=== PATIENT | female | born 1980 | race Caucasian/White ===

== ENCOUNTER 2022-08-14 19:24 | Emergency (ER) | payer OTHER ==
[2022-08-14 21:21] VITALS: BP 114/65
--- NOTE | 2022-08-14 21:54 | ERPHSYRPT ---
- History of Present Illness Time Seen by Provider: 08/14/22 19:50 Source: patient Exam Limitations: no limitations Patient Subjective Stated Complaint: Pt states "On sunday I had a headache behind my eyes which is gone now but my neck and back was also hurting and my ne ck/back continues to hurt." Triage Nursing Assessment: Pt alert and oriented x3, very talkative. Ambulated to ED cot without difficulty, able to get into bed without difficulty. Skin w/p/d. No apparent respiratory distress. No bruising/erythema/deformities/tenderness along neck or back. Physician History: Patient is a 41-year-old white female presents with back pain since Sunday morning or 2 and half days ago she had some retro-orbital pain she is also had some pain into the shoulders and upper back. She has had whiplash on 2 occasions she denies any fever chills sweats she also has had muscle spasms in the past. Timing/Duration: day(s) (2) Severity: moderate Modifying Factors: Improves With: movement Allergies/Adverse Reactions: No Known Drug Allergies Allergy (Unverified 08/14/22 19:43) Home Medications: Furosemide [Lasix] See Rx Instructions .ROUTE .COMPLEX 08/14/22 [History] Lisinopril/Hydrochlorothiazide [Lisinopril-Hctz 20-25 mg Tab] 1 tab PO DAILY 08/14/22 [History] Hx Tetanus, Diphtheria Vaccination/Date Given: No Hx Influenza Vaccination/Date Given: No Hx Pneumococcal Vaccination/Date Given: No Travel Risk - International Travel Have you traveled outside of the country in past 3 weeks: No - Coronavirus Screening Are you exhibiting any of the following symptoms?: No Close contact with a COVID-19 positive Pt in past 14-21 Days: No - Vaccine Status Have you recieved a Covid-19 vaccination: No - Review of Systems Constitutional: No Fever, No Chills Eyes: No Symptoms Ears, Nose, & Throat: No Symptoms Respiratory: No Cough, No Dyspnea Cardiac: No Chest Pain, No Edema, No Syncope Abdominal/Gastrointestinal: No Abdominal Pain, No Nausea, No Vomiting, No Diarrhea Genitourinary Symptoms: No Dysuria Musculoskeletal: Back Pain, Neck Pain Skin: No Rash Neurological: No Dizziness, No Focal Weakness, No Sensory Changes Psychological: No Symptoms Endocrine: No Symptoms All Other Systems: Reviewed and Negative - Past Medical History Cardiac History: Hypertension - Past Surgical History Past Surgical History: Yes Female Surgical History: Tubal Ligation - Social History Smoking Status: Current every day smoker Exposure to second hand smoke: Yes Drug Use: none Patient Lives Alone: No - Female History Hx Last Menstrual Period: 07/09/22 Hx Now: No - Nursing Vital Signs Nursing Vital Signs: Initial Vital Signs Temperature 98.2 F 08/14/22 19:43 Pulse Rate 102 H 08/14/22 19:43 Respiratory Rate 17 08/14/22 19:43 Blood Pressure 127/77 08/14/22 19:43 O2 Sat by Pulse Oximetry 99 08/14/22 19:43 Pain Scale Pain Intensity [Back] 7 Pain Intensity 7 - Physical Exam General Appearance: mild distress, alert Eye Exam: PERRL/EOMI, eyes nml inspection Ears, Nose, Throat Exam: normal ENT inspection, TMs normal, pharynx normal, moist mucous membranes Neck Exam: normal inspection, non-tender, supple, limited range of motion, other (Some muscle tenderness) Respiratory Exam: normal breath sounds, lungs clear, No respiratory distress Cardiovascular Exam: regular rate/rhythm, normal heart sounds, normal peripheral pulses Gastrointestinal/Abdomen Exam: soft, normal bowel sounds, No tenderness, No mass Back Exam: normal inspection, normal range of motion, No CVA tenderness, No vertebral tenderness Extremity Exam: normal inspection, normal range of motion, pelvis stable Neurologic Exam: alert, oriented x 3, cooperative, normal mood/affect, nml cerebellar function, nml station & gait, sensation nml, No motor deficits Skin Exam: normal color, warm, dry, No rash Lymphatic Exam: No adenopathy SpO2 Interpretation: normal SpO2: 99 O2 Delivery: Room Air - Course Nursing assessment & vital signs reviewed: Yes Ordered Tests: Active Orders 24 hr Category Date Time Status CERVICAL SPINE (2 OR 3 VIEW) Stat Exams 08/14/22 20:21 Taken CHEST 2 VIEWS (PA AND LAT) Stat Exams 08/14/22 20:22 Taken - Progress Progress: improved Medical Desision Making - Diagnostic Testing Diagnostic test were ordered, analyzed, and reviewed by me: Yes Radiological Interpretation: Interpreted by me, Reviewed by me - Risk of complications The pt has a mod risk of morbidity or mortality based on: Need for prescription drug management - Departure Departure Disposition: Home Clinical Impression: Muscle spasm Condition: Stable Critical Care Time: No Referrals: DOCTOR,NO FAMILY [Primary Care Provider] - Follow up/PCP as directed Instructions: Muscle Spasms (DC) Forms: Work/School Release Form
[2022-08-14 22:06] VITALS: PULSE 98; O2SAT 98
--- NOTE | 2022-08-15 08:43 | XRAY ---
Indication: Chest pain. Comparison: None PA/lateral chest demonstrates normal heart and lungs with incidental tiny right apical calcified granuloma. Bony thorax intact.
--- NOTE | 2022-08-15 08:44 | XRAY ---
Indication: Pain. Comparison: None 3 view cervical spine demonstrates mild lordotic straightening. Vertebral body heights/disc spaces maintained. No bony, articular, or soft tissue abnormalities.
== END 2022-08-14 22:06 | disposition home or self-care (01) ==
LOC: ED 19:24
DX: M62.830 Muscle spasm of back (principal); I10 Essential (primary) hypertension; Z79.899 Other long term (current) drug therapy; Z28.310 Unvaccinated for COVID-19; Z72.0 Tobacco use
CPT/HCPCS: 71046; 72040; 99283